=== PATIENT | male | born 1990 | race African-American/Black ===

== ENCOUNTER 2023-10-23 10:50 | Emergency (ER) | payer MEDICAID ==
[~2023-10-23] VITALS: Ht 180.3 cm; Wt 100.0 kg
[2023-10-23 11:07] VITALS: O2SAT 98
[2023-10-23] MEDS ORDERED: TRIMO EACHEYE (12:52)
[2023-10-23 13:23] VITALS: BP 144/109; PULSE 85; RESP 18; TEMP 98.5
== END 2023-10-23 13:38 | disposition home or self-care (01) ==
LOC: ER 10:50
DX: H10.9 Unspecified conjunctivitis (principal); E11.9 Type 2 diabetes mellitus without complications
CPT/HCPCS: 99283